=== PATIENT | female | born 1965 | race Caucasian/White ===

== ENCOUNTER 2017-10-26 11:35 | Emergency (ER) | payer OTHER ==
[2017-10-26 12:46] VITALS: BP 124/88
== END 2017-10-26 16:42 ==
LOC: ED 11:35
DX: J11.1 Influenza due to unidentified influenza virus with other respiratory manifestations (principal); Z53.21 Procedure and treatment not carried out due to patient leaving prior to being seen by health care provider

== ENCOUNTER 2018-03-10 16:40 | Emergency (ER) | payer OTHER ==
[2018-03-10 16:47] VITALS: BP 153/107
== END 2018-03-10 20:50 | disposition left against medical advice (07) ==
LOC: ED 16:40
DX: H57.8 Other specified disorders of eye and adnexa (principal); Z53.21 Procedure and treatment not carried out due to patient leaving prior to being seen by health care provider